=== PATIENT | male | born 1970 | race Two or more races ===

== ENCOUNTER 2020-03-10 09:06 | Day surgery (SDC) | payer MEDICAID ==
[~2020-03-10] VITALS: Ht 172.7 cm; Wt 98.2 kg
[2020-03-10] MEDS ORDERED: fentaNYL/PF 50MCG/1 ML 2ML syringe ONE (09:17)
[2020-03-10] MEDS ORDERED: LIDOcaine Viscous 15ml cup ONE (09:17)
[2020-03-10] MEDS ORDERED: MIDAZolam 5mg/5ml vial ONE (09:17)
[2020-03-10 09:19] VITALS: BP 122/88
[2020-03-10] MEDS ORDERED: OMEP-50 PO (09:47)
[2020-03-10 10:05] VITALS: BP 126/76
[2020-03-10 10:15] VITALS: BP 118/63
[2020-03-10 10:25] VITALS: BP 118/80
[2020-03-10 10:35] VITALS: BP 118/81
== END 2020-03-10 10:35 | disposition home or self-care (01) ==
LOC: GI LAB 09:06
PROVIDERS: ATTEND Internal Medicine Gastroenterology
DX: R12 Heartburn (principal)
CPT/HCPCS: 43239; 99152; J2250; J3010; J7040; A4620